=== PATIENT | male | born 1995 | race Caucasian/White ===

== ENCOUNTER 2018-06-01 20:07 | Emergency (ER) | payer SELFPAY, MEDICAID | END 2018-06-01 23:48 | disposition home or self-care (01) | LOC: FTE 23:48 | DX: A60.02 Herpesviral infection of other male genital organs (principal); N50.9 Disorder of male genital organs, unspecified | CPT/HCPCS: 99283 ==

== ENCOUNTER 2018-11-17 08:15 | Emergency (ER) | payer SELFPAY ==
[2018-11-17] MEDS: HYDROCODONE/APAP (10/325) TAB PO (08:53)
[2018-11-17] MEDS: ONDANSETRON (ODT) 4 MG TAB ODT (08:53)
== END 2018-11-17 10:12 | disposition home or self-care (01) ==
LOC: FTE 08:15
DX: S42.021A Displaced fracture of shaft of right clavicle, initial encounter for closed fracture (principal); S09.90XA Unspecified injury of head, initial encounter; S52.614A Nondisplaced fracture of right ulna styloid process, initial encounter for closed fracture; M25.531 Pain in right wrist; R93.0 Abnormal findings on diagnostic imaging of skull and head, not elsewhere classified; V18.4XXA Pedal cycle driver injured in noncollision transport accident in traffic accident, initial encounter
CPT/HCPCS: 29125; 70450; 71045; 73000; 73030-RT; 73110-RT; 99284-25